=== PATIENT | female | born 1935 | race Two or more races ===

== ENCOUNTER 2022-08-05 08:05 | Outpatient (RCR) | payer MEDICARE, SELFPAY | END 2022-08-18 16:18 | disposition home or self-care (01) | LOC: HO.WCC 08:05 | PROVIDERS: Referring Provider Family Medicine; Visit Provider Physician Assistant | DX: L89.153 Pressure ulcer of sacral region, stage 3 (principal); S31.819D Unspecified open wound of right buttock, subsequent encounter; F03.90 Unspecified dementia, unspecified severity, without behavioral disturbance, psychotic disturbance, mood disturbance, and anxiety; X58.XXXD Exposure to other specified factors, subsequent encounter; Z87.891 Personal history of nicotine dependence; Z79.899 Other long term (current) drug therapy | CPT/HCPCS: 99213 ==

== ENCOUNTER → 2022-12-28 14:02 | Outpatient (BNVA) | payer MEDICARE, SELFPAY | PROVIDERS: Visit Provider Psychiatry & Neurology Neurology ==

== ENCOUNTER → 2023-05-30 12:31 | Outpatient (BNVA) | payer MEDICARE, SELFPAY | PROVIDERS: PCP Family Medicine; Visit Provider Psychiatry & Neurology Neurology ==